=== PATIENT | female | born 1970 | race Caucasian/White ===

== ENCOUNTER 2024-01-31 16:08 | Emergency (ER) | payer OTHER ==
[~2024-01-31] VITALS: Ht 154.9 cm; Wt 59.9 kg
[2024-01-31 16:10] VITALS: BP_SYST 163; PULSE 128; RESP 22; TEMP 98.4; O2SAT 96
[2024-01-31 18:14] LABS: BASOPHILS % (AUTO) 0.3 % (0.0-2.0); EOSINOPHILS # (AUTO) 0.2 K/uL (0.0-0.4); EOSINOPHILS % (AUTO) 1.1 % (0.0-4.0); HEMATOCRIT 37.4 % (36-48); HEMOGLOBIN 12.9 g/dL (12.0-16.0); LYMPHOCYTES % (AUTO) 14.1 % (20.5-51.5); MEAN CORPUSCULAR HEMOGLOBIN 26 pg (27-31); MEAN CORPUSCULAR HGB CONC 34 % (32-36); MEAN CORPUSCULAR VOLUME 76 fL (79.0-98.0); MONOCYTES # (AUTO) 1.2 K/uL (0.0-1.0); MONOCYTES % (AUTO) 8.5 % (1.7-9.3); NEUTROPHILS # (AUTO) 10.6 K/uL (1.8-7.7); PLATELET COUNT (AUTO) 234 K/uL (130-430); RED BLOOD CELL COUNT(AUTO) 4.94 MIL/uL (4.2-6.2); RED CELL DISTRIBUTION WIDTH 14.7 % (9.0-15.0)
[2024-01-31 18:20] LABS: PROTHROMBIN TIME 10.1 SECS (9.5-12.5)
[2024-01-31 18:36] LABS: ALANINE AMINOTRANSFERASE 24 U/L (12-78); ALBUMIN 3.2 g/dL (3.4-4.8); ANION GAP 11 (5-15); ASPARTATE AMINOTRANSFERASE 17 U/L (10-37); CALCIUM 8.9 mg/dL (8.4-11.0); CARBON DIOXIDE 25 mmol/L (23-29); CHLORIDE 103 mmol/L (98-107); CREATININE 0.48 mg/dL (0.55-1.30); GFR AFRICAN AMERICAN 173 mL/min (>90); GFR NON AFRICAN-AMERICAN 143 mL/min (>90); GLUCOSE 119 mg/dL (74-106); POTASSIUM 3.6 mmol/L (3.5-5.1); SODIUM SERUM 139 mmol/L (136-145); TOTAL BILIRUBIN 0.4 mg/dL (0.0-1.0); TOTAL PROTEIN, SERUM 7.3 g/dL (6.4-8.3); UREA NITROGEN, BLOOD 10 mg/dL (8-21)
[2024-01-31 18:41] LABS: BILIRUBIN,DIRECT 0.1 mg/dL (0.0-0.3); CREATINE KINASE, TOTAL 26 U/L (26-192)
[2024-01-31] MEDS ORDERED: APIX5TAB PO (20:12)
[2024-01-31] MEDS ORDERED: LEVO-62 PO (20:12)
[2024-01-31] MEDS: HYDROcodone/ACETAMIN 10-325 MG TAB PO ONE (20:47)
[2024-01-31 20:50] VITALS: BP_SYST 163; PULSE 128; RESP 22; TEMP 98.4; O2SAT 96
== END 2024-01-31 20:50 | disposition home or self-care (01) ==
LOC: SED 16:08
DX: J18.8 Other pneumonia, unspecified organism (principal); Z86.718 Personal history of other venous thrombosis and embolism
CPT/HCPCS: 99285; 71275; 71045; 80076; 80048; 82550; 85025; 85610; 85730; 84484; 36415; 93005; J1956